=== PATIENT | male | born 1970 | race Caucasian/White ===

== ENCOUNTER 2019-08-02 17:56 | Emergency (ER) | payer OTHER, SELFPAY ==
[2019-08-02 17:58] VITALS: BP 157/99; PULSE 82; RESP 18; TEMP 36.8; O2SAT 97; BMI 37.0
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
[2019-08-02] MEDS: HYDROcodone Bitartrate/Apap 5/325 Tablet PO (18:53)
[2019-08-02] MEDS: Ibuprofen 600 MG Tablet PO (18:53)
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
[2019-08-02 19:41] VITALS: BP 145/88; PULSE 78; RESP 16; O2SAT 98
== END 2019-08-02 19:41 | disposition home or self-care (01) ==
PROVIDERS: Emergency Provider Emergency Medicine; PCP Family Medicine
DX: S39.012A Strain of muscle, fascia and tendon of lower back, initial encounter (principal); S60.512A Abrasion of left hand, initial encounter; S60.222A Contusion of left hand, initial encounter; S60.011A Contusion of right thumb without damage to nail, initial encounter; I10 Essential (primary) hypertension; V59.88XA Occupant (driver) (passenger) of pick-up truck or van injured in other specified transport accidents, initial encounter; R05 Cough
CPT/HCPCS: 72100; 73130; 99283

== ENCOUNTER → 2020-04-21 16:16 | Outpatient (CLI) | payer OTHER, SELFPAY ==
[2020-04-11 09:07] VITALS: BMI 36.5
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
== END ==
PROVIDERS: PCP Family Medicine; Referring Provider Orthopaedic Surgery; Visit Provider Orthopaedic Surgery
DX: M54.5 Low back pain (principal)
CPT/HCPCS: 72148

== ENCOUNTER 2021-08-04 18:55 | Emergency (ER) | payer OTHER, SELFPAY ==
[2021-08-04 18:56] VITALS: BP 187/85; PULSE 75; RESP 16; TEMP 36.3; O2SAT 96; BMI 37.2
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
== END 2021-08-04 19:45 | disposition home or self-care (01) ==
PROVIDERS: Emergency Provider Emergency Medicine; PCP Family Medicine; Visit Provider Emergency Medicine
DX: S82.832A Other fracture of upper and lower end of left fibula, initial encounter for closed fracture (principal); I10 Essential (primary) hypertension; W00.0XXA Fall on same level due to ice and snow, initial encounter; Z79.899 Other long term (current) drug therapy
CPT/HCPCS: 73610; 99283

== ENCOUNTER 2021-08-12 08:25 | Outpatient (CLI) | payer OTHER, SELFPAY ==
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
== END 2021-08-12 23:59 | disposition home or self-care (01) ==
LOC: CT 08:27
PROVIDERS: PCP Family Medicine; Referring Provider Podiatrist; Visit Provider Podiatrist
DX: S92.102A Unspecified fracture of left talus, initial encounter for closed fracture (principal)
CPT/HCPCS: 73700